=== PATIENT | male | born 1990 | race Caucasian/White ===

== ENCOUNTER 2016-10-20 16:07 | Emergency (ER) | payer SELFPAY ==
[2016-10-20] MEDS ORDERED: Sodium Chloride 0.9% 1,000 ML IV ONE (17:07)
[2016-10-20] MEDS ORDERED: Ketorolac 30 MG/ML SDV IVPUSH ONE (17:07)
[2016-10-20] MEDS ORDERED: methylPREDNISolone Sodium Succinate 125 MG/2 ML SDV IVPUSH ONE (17:07)
[2016-10-20] MEDS ORDERED: HYDROmorphone 1 MG/ML Syringe IV ONE (17:07)
[2016-10-20 17:50] LABS: CHLORIDE,CL 101 mmol/L (98-110); SODIUM,NA 136 mmol/L (136-146)
[2016-10-20] MEDS ORDERED: Clindamycin Phosphate in D5W 600 MG in Premix Bag 50 BAG IV ONE ×2 (17:54)
[2016-10-20] MEDS ORDERED: Sodium Chloride 0.9% 1,000 ML IV STA (18:02)
--- NOTE | 2016-10-20 18:04 | EDM.PDOC ---
ED HPI GENERAL MEDICAL PROBLEM - General Chief Complaint: ENT Problem Stated Complaint: PT HAS SORE THROAT Time Seen by Provider: 10/20/16 16:45 Source of Information: Reports: Patient History Limitations: Reports: No Limitations - History of Present Illness INITIAL COMMENTS - FREE TEXT/NARRATIVE: HISTORY AND PHYSICAL: History of present illness: [Patient comes to the emergency room complaining of a sore throat. His symptoms have been present for the past 6 days and have been gradually worsening. He states that this is the worst pain he has ever experienced and that the worst pain is on the left side. Has been taking some Tylenol with minimal improvement of his pain. he's had difficulty swallowing food and fluids. He feels dehydrated. Difficulty speaking due to pain in his throat. No drooling or inability to swallow. No cough or chest pain shortness of breath or difficulty breathing. He does not feel as though it's difficult to take a deep breath. No nausea vomiting or abdominal pain. Denies muscle and joint aches and pains. He has no other complaints or concerns today.] Review of systems: As per history of present illness and below otherwise all systems reviewed and negative. Past medical history: As per history of present illness and as reviewed below otherwise noncontributory. Surgical history: As per history of present illness and as reviewed below otherwise noncontributory. Social history: No reported history of drug or alcohol abuse. Family history: As per history of present illness and as reviewed below otherwise noncontributory. Physical exam: HEENT: Atraumatic, normocephalic. Left TM is moderately erythematous with mild effusion. Right TM is clear and without effusion. Nares are patent. Oral mucous membranes are dry. Scabs are present to the corner of both lips. Tonsils are swollen and enlarged, but not kissing. No exudate appreciated. No oral lesions. Neck is supple. Tender and enlarged lymph nodes to L anterior cervical chain. Shotty postauricular lymphadenopathy to L pupils reactive, negative for conjunctival pallor or scleral icterus, mucous membranes moist, throat clear, neck supple, nontender, trachea midline. Lungs: Clear to auscultation, breath sounds equal bilaterally. No stridor, wheezing or crackles. Heart: S1S2, regular rate and rhythm. Abdomen: Soft, nondistended, nontender. Normoactive bowels. Negative for masses guarding or rebound. Negative for costovertebral tenderness. Pelvis: Stable nontender. Genitourinary: Deferred. Rectal: Deferred. Extremities: Atraumatic, negative for cords or calf pain. Neurovascular unremarkable. No cyanosis or edema to feet or lower legs. Neuro: Awake, alert, oriented. Motor and sensory unremarkable throughout. Exam nonfocal. Diagnostics: [CBC, soft tissue neck CT w/ contrast, CMP, strep swab, throat culture, mono] Therapeutics: [2 liters NS, Dilaudid 0.5mg IV, Toradol 30mg IV, Clindamycin 600mg IV, Solu- Medrol 125mg IV ] Impression: [Tonsillar abscess] Plan: [Radiologist calls w/ verbal report of the CT scan at 7:25 PM on October 20. He verbally reports a 17 mm tonsillar abscess on the left side. Written radiology report is received with the impression stating that the abscesses peritonsillar. I called and spoke to Dr. Juan Antonio Marshall a second time who again reports verbally that the abscess is tonsillar and on left side. States that he will correct the radiology report. As of 1999 on 10/21/16 this is not yet completed. We'll follow up on this on Sunday. Patient's condition is reviewed with Dr. Yeager who recommends patient be discharged to home with a prescription for clindamycin with close follow-up on Sunday. She states that her functional mental disability teacher will call the patient to get this scheduled. Patient is given clindamycin 600 mg IV and Solu-Medrol 125 mg IV in the ER. He feels improved after receiving 2 L of normal saline Toradol and Dilaudid. Follow up with Dr. Yeager, ENT early next week. Their office will call pt to schedule. Written Rx's for Hydrocodone 5/325mg (#30) si po q 4-6 hours prn pain 0 RF's, clindamycin 300mg (#40) si po q 6 hours x 10 days 0 RF's. Strict return precautions are discussed with patient and mother.] Definitive disposition and diagnosis as appropriate pending reevaluation and review of above. Throat Pain Score (Numeric/FACES): 10 - Related Data Allergies Allergy/AdvReac Type Severity Reaction Status Date / Time No Known Allergies Allergy Verified 10/20/16 17:25 Home Meds: Home Meds . [No Known Home Meds] 10/20/16 [History] Past Medical History - Past Surgical History GI Surgical History: Reports: Appendectomy Social & Family History - Family History Family Medical History: Noncontributory - Tobacco Use Smoking Status *Q: Never Smoker Second Hand Smoke Exposure: No - Caffeine Use Caffeine Use: Reports: None - Alcohol Use Days Per Week of Alcohol Use: 4 Number of Drinks Per Day: 6 Total Drinks Per Week: 24 - Recreational Drug Use Recreational Drug Use: No ED ROS ENT - Review of Systems Review Of Systems: ROS reveals no pertinent complaints other than HPI. ED EXAM, ENT - Physical Exam Exam: See Below Course - Vital Signs Last Recorded V/S: Last Vital Signs Temp 98.4 F 10/20/16 20:30 Pulse 100 10/20/16 20:30 Resp 16 10/20/16 20:30 BP 118/74 10/20/16 20:30 Pulse Ox 99 10/20/16 20:30 - Orders/Labs/Meds Labs: Laboratory Tests 10/20/16 10/20/16 10/20/16 Range/Units 17:25 17:25 17:25 WBC 16.83 H (4.0-11.0) K/uL RBC 5.33 (4.50-5.90) M/uL Hgb 17.0 (13.0-17.0) g/dL Hct 46.3 (38.0-50.0) % MCV 86.9 (80.0-98.0) fL MCH 31.9 (27.0-32.0) pg MCHC 36.7 (31.0-37.0) g/dL RDW Std Deviation 38.8 (28.0-62.0) fl RDW Coeff of Tamara 12 (11.0-15.0) % Plt Count 248 (150-400) K/uL MPV 9.40 (7.40-12.00) fL Neut % (Auto) 79.9 (48.0-80.0) % Lymph % (Auto) 9.0 L (16.0-40.0) % Clinch % (Auto) 9.3 (0.0-15.0) % Eos % (Auto) 1.5 (0.0-7.0) % Baso % (Auto) 0.3 (0.0-1.5) % Neut # (Auto) 13.5 H (1.4-5.7) K/uL Lymph # (Auto) 1.5 (0.6-2.4) K/uL Clinch # (Auto) 1.6 H (0.0-0.8) K/uL Eos # (Auto) 0.3 (0.0-0.7) K/uL Baso # (Auto) 0.1 (0.0-0.1) K/uL Nucleated RBC % 0.0 /100WBC Nucleated RBCs # 0 K/uL Sodium 136 (136-146) mmol/L Potassium 4.3 (3.5-5.1) mmol/L Chloride 101 (98-110) mmol/L Carbon Dioxide 20 L (21-31) mmol/L BUN 11 (6.0-23.0) mg/dL Creatinine 1.1 (0.6-1.5) mg/dL Est Cr Clr Drug Dosing 106.00 mL/min Estimated GFR (MDRD) > 60.0 ml/min Glucose 82 (60-110) mg/dL Calcium 9.9 (8.8-10.8) mg/dL Total Bilirubin 2.0 H (0.1-1.5) mg/dL AST 21 (5-40) IU/L ALT 40 (8-54) IU/L Alkaline Phosphatase 107 (40-150) Total Protein 9.2 H (6.0-8.0) g/dL Albumin 4.4 (3.5-5.0) g/dL Globulin 4.8 H (2.0-3.5) g/dL Albumin/Globulin Ratio 0.9 L (1.3-2.8) Monoscreen NEGATIVE (NEG) Meds: Medications Discontinued Medications Generic Name Dose Route Start Last Admin Trade Name Freq PRN Reason Stop Dose Admin Hydromorphone HCl 0.5 mg 10/20/16 17:07 10/20/16 17:32 Dilaudid IV 10/20/16 17:08 0.5 mg ONETIME ONE Administration Sodium Chloride 1,000 mls @ 999 mls/hr 10/20/16 17:07 10/20/16 17:28 Normal Saline IV 10/20/16 18:07 999 mls/hr STAT ONE Administration Clindamycin Phosphate 600 mg/ 50 mls @ 100 mls/hr 10/20/16 17:54 10/20/16 19: 08 Premix IV 10/20/16 18:23 100 mls/hr ONETIME ONE Administration Sodium Chloride 1,000 mls @ 999 mls/hr 10/20/16 18:02 10/20/16 18:02 Normal Saline IV 10/20/16 19:02 999 mls/hr NOW STA Administration Iopamidol 75 ml 10/20/16 18:58 10/20/16 18:59 Isovue Multipack-370 (76%) IVPUSH 10/20/16 18:59 75 ml ONETIME STA Administration Ketorolac Tromethamine 30 mg 10/20/16 17:07 10/20/16 17:28 Toradol IVPUSH 10/20/16 17:08 30 mg ONETIME ONE Administration Methylprednisolone Sodium Succinate 125 mg 10/20/16 17:07 10/20/16 17:30 Solu-Medrol IVPUSH 10/20/16 17:08 125 mg ONETIME ONE Administration Departure - Departure Time of Disposition: 20:00 Disposition: Home, Self-Care 01 Condition: Good Clinical Impression: Tonsillar abscess - Discharge Information Instructions: Peritonsillar Abscess, [id number] Referrals: PCP,None [Primary Care Provider] - Forms: ED Department Discharge Additional Instructions: The following information is given to patients seen in the emergency department who are being discharged to home. This information is to outline your options for follow-up care. We provide all patients seen in our emergency department with a follow-up referral. The need for follow-up, as well as the timing and circumstances, are variable depending upon the specifics of your emergency department visit. If you don't have a primary care physician on staff, we will provide you with a referral. We always advise you to contact your personal physician following an emergency department visit to inform them of the circumstance of the visit and for follow-up with them and/or the need for any referrals to a consulting specialist. The emergency department will also refer you to a specialist when appropriate. This referral assures that you have the opportunity for follow-up care with a specialist. All of these measure are taken in an effort to provide you with optimal care, which includes your follow-up. Under all circumstances we always encourage you to contact your private physician who remains a resource for coordinating your care. When calling for follow-up care, please make the office aware that this follow-up is from your recent emergency room visit. If for any reason you are refused follow-up, please contact the [facility] emergency department at and asked to speak to the emergency department charge nurse. [facility] [address] [place] [id number] [address] Yeager's office, listed above, will contact you early next week to schedule a follow-up appointment. Ibuprofen 200 mg tablets 3 tabs every 6-8 hours with food. Take antibiotics as prescribed. Take pain medication as needed for moderate to severe pain. You do not need to take Tylenol while you're taking this medication. Return to ER as needed as discussed.
[2016-10-20] MEDS ORDERED: Iopamidol 755 MG/ML 500 ML Multipack Bottle IVPUSH STA (18:58)
[2016-10-20 20:35] VITALS: BP 118/74
--- NOTE | 2016-10-23 10:06 | CT ---
EXAM DATE: 10/20/16 PATIENT'S AGE: 26 Patient: MARIA D WONG Facility: [place], [place] Site . Site : 1990 Study: CT ST Neck w cont [id number] 7:09:48 PM Ordering Physician: Doctor Gutierrez Final Report: Indication: Tonsillar swelling with elevated white blood cell count. Difficulty swallowing and pain. Technique: 75 mL Isovue-370 IV contrast with equilibrium imaging skullbase to carinal. Findings: Moderately prominent swelling of both tonsils which coapt in the midline, slightly narrowing the airway. Arytenoids is not appear significantly swollen. Uvula somewhat swollen. In the left tonsil there is an ill-defined 17 mm hypoattenuating focus commensurate with abscess. Retropharyngeal spaces are clear. Numerous reactive jugular chain lymph nodes bilaterally. Salivary glands appear normal. Epiglottis and arytenoid and vocal fold opacities appear normal for age. Thyroid is normal for age. Visualized lung parenchyma is unremarkable. Major vascular structures appear patent in the neck. Impression: Small 17 mm peritonsillar abscess on the left with moderate tonsillar enlargement bilaterally. Report discussed with and acknowledged by Dr. Carranza 7: 25 p.m. 20 October 2016. Please note that all CT scans at this facility use dose modulation, iterative reconstruction, and/or weight-based dosing when appropriate to reduce radiation dose to as low as reasonably achievable. Dictated by Juan Antonio Marshall MD @ Oct 20 2016 7:26PM (Electronic Signature) Report Signed by Proxy. AIDEN
== END 2016-10-20 20:30 | disposition home or self-care (01) ==
LOC: MW.ED 16:07
DX: J36 Peritonsillar abscess (principal); Z90.49 Acquired absence of other specified parts of digestive tract
CPT/HCPCS: 36415; 70491; 80053; 85025; 86308; 87081; 87880; 96361; 96365; 96375; 99284; J1170; J1885; J2930; J7040; Q9967

== ENCOUNTER 2022-03-12 16:47 | Emergency (ER) | payer SELFPAY ==
[2022-03-12 16:54] VITALS: BP 150/113; PULSE 64
[2022-03-12] MEDS ORDERED: Benzocaine 20% Topical Spray UD MUCMEM ONE (17:07)
[2022-03-12] MEDS ORDERED: Lidocaine 2% Viscous Solution 15 ML UD PO ONE (17:07)
== END 2022-03-12 17:25 | disposition home or self-care (01) ==
LOC: MW.ED 16:47
DX: K08.89 Other specified disorders of teeth and supporting structures (principal)
CPT/HCPCS: 99282; A9270